=== PATIENT | male | born 1990 | race Hispanic/Latino ===

== ENCOUNTER 2024-03-31 07:09 | Emergency (ER) | payer OTHER ==
[~2024-03-31] VITALS: Ht 172.7 cm; Wt 65.0 kg
[2024-03-31] MEDS ORDERED: AMOX1TAB16 PO (08:12)
[2024-03-31] MEDS ORDERED: AMOX875T2 PO (08:12)
[2024-03-31] MEDS: CIPROFLOXACIN HCL 0.2%/HYDROCORT 1% 10 ML OTIC SUSP OTIC SCH (08:15)
[2024-03-31] MEDS: CEFTRIAXONE 1G VIAL IM ONE (08:16)
[2024-03-31] MEDS: HYDROCODONE/ACETAMINOPHEN 5/325 MG TAB PO ONE (08:16)
[2024-03-31 08:44] VITALS: BP 102/64; PULSE 84; RESP 16; O2SAT 99
== END 2024-03-31 08:47 | disposition home or self-care (01) ==
LOC: EDH 07:09
DX: H60.551 Acute reactive otitis externa, right ear (principal)
CPT/HCPCS: 99283; 96372; J0696